=== PATIENT | male | born 1975 | race American Indian/Alaskan Native ===

== ENCOUNTER 2021-05-23 09:55 | Emergency (ER) | payer SELFPAY ==
--- NOTE | 2021-05-23 11:42 | Emergency Department Report ---
ED General Adult HPI - General Chief complaint: Arrhythmia/Palpitations Stated complaint: ABNORMAL HEART RATE Time Seen by Provider: 05/23/21 11:28 Source: patient Mode of arrival: Ambulatory Limitations: No Limitations - History of Present Illness Initial comments: Patient is a 46-year-old male presents emergency room with complaints of needing clearance. 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 He states that they just listened with a stethoscope, but he did not have an EKG performed. He reports he was advised to be evaluated. He denies any symptoms at all and states that he "feels just fine." He denies any chest pain, shortness of breath, pleuritic pain, hemoptysis, leg swelling, calf pain, palpitations. Patient denies any past medical history. He denies any medications. He states that he does drink a lot of caffeine and energy drinks. No allergies to medications. - Related Data Previous Rx's Medication Instructions Recorded Last Taken Type amLODIPine 5 mg PO DAILY #30 tab 05/23/21 Unknown Rx Allergies Allergy/AdvReac Type Severity Reaction Status Date / Time No Known Allergies Allergy Unverified 05/23/21 10:12 ED Review of Systems ROS: Stated complaint: ABNORMAL HEART RATE Other details as noted in HPI Comment: All other systems reviewed and negative ED Past Medical Hx - Medications Home Medications: Home Medications Medication Instructions Recorded Confirmed Last Taken Type amLODIPine 5 mg PO DAILY #30 tab 05/23/21 Unknown Rx ED Physical Exam - General Limitations: No Limitations General appearance: alert, in no apparent distress - Head Head exam: Present: atraumatic, normocephalic - Eye Eye exam: Present: normal appearance - ENT ENT exam: Present: mucous membranes moist - Respiratory Respiratory exam: Present: normal lung sounds bilaterally. Absent: respiratory distress, wheezes, rales, rhonchi, stridor, chest wall tenderness, accessory muscle use, decreased breath sounds, prolonged expiratory - Cardiovascular Cardiovascular Exam: Present: normal rhythm, tachycardia (mild), normal heart sounds. Absent: systolic murmur, diastolic murmur, rubs, gallop - Neurological Exam Neurological exam: Present: alert, oriented X3 - Psychiatric Psychiatric exam: Present: normal affect, normal mood - Skin Skin exam: Present: warm, dry, intact ED Course Vital Signs 05/23/21 05/23/21 10:10 13:41 Temperature 98.5 F 99.0 F Pulse Rate 109 H 105 H Respiratory 17 18 Rate Blood Pressure 187/113 Blood Pressure 172/104 [Left] O2 Sat by Pulse 99 99 Oximetry ED Medical Decision Making - Lab Data Vital Signs 05/23/21 05/23/21 10:10 13:41 Temperature 98.5 F 99.0 F Pulse Rate 109 H 105 H Respiratory 17 18 Rate Blood Pressure 187/113 Blood Pressure 172/104 [Left] O2 Sat by Pulse 99 99 Oximetry - EKG Data EKG shows normal: sinus rhythm, axis, intervals, QRS complexes Rate: normal - EKG Data 05/23/21 12:49 non specific T wave inversion no STEMI - Medical Decision Making Patient is a 46-year-old male presents emergency room with complaints of needing clearance. 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 He states that they just listened with a stethoscope, but he did not have an EKG performed. He reports he was advised to be evaluated. He denies any symptoms at all and states that he "feels just fine." He denies any chest pain, shortness of breath, pleuritic pain, hemoptysis, leg swelling, calf pain, palpitations. Patient denies any past medical history. He denies any medications. He states that he does drink a lot of caffeine and energy drinks. No allergies to medications. vitals with mild tachycardia and elevated BP. EKG shows normal sinus rhythm and non specific T wave inversion, no arrhythmia. Patient is asymptomatic. Discussed case with Dr. Medina, ER attending who advised that patient can be discharged home and follow-up with primary care provider for DOT physical clearance and advised to start patient on blood pressure medication. Patient will be started on amlodipine 5 mg daily. Discussed lifestyle modifications with patient and advised low-sodium diet and to stop caffeine use. Advised patient Please take medication as prescribed. Increase your water intake. Eat a low-sodium diet. Incorporate 30 to 60 minutes of aerobic exercise daily. Please keep a blood pressure log and take this to the primary care doctor. You will need to follow- up with a primary care doctor regarding clearance for your DOT physical. We do not perform or clear people for DOT in the emergency room. Return to emergency room for any new or worsening symptoms. Critical care attestation.: If time is entered above; I have spent that time in minutes in the direct care of this critically ill patient, excluding procedure time. ED Disposition Clinical Impression: Elevated blood pressure reading HTN (hypertension) Qualifiers: Hypertension type: unspecified Qualified Code(s): I10 - Essential (primary) hypertension Disposition: 01 HOME / SELF CARE / HOMELESS Is pt being admited?: No Does the pt Need Aspirin: No Condition: Stable Instructions: Managing Your Hypertension, Hypertension (ED) Additional Instructions: Please take medication as prescribed. Increase your water intake. Eat a low- sodium diet. Incorporate 30 to 60 minutes of aerobic exercise daily. Please keep a blood pressure log and take this to the primary care doctor. You will need to follow-up with a primary care doctor regarding clearance for your DOT physical. We do not perform or clear people for DOT in the emergency room. Return to emergency room for any new or worsening symptoms. walk in clinic: [facility] in [place], [place] Address: [address] [place] [id number] Prescriptions: amLODIPine 5 mg PO DAILY #30 tab Referrals: MEGAN CARDONA MD [Primary Care Provider] - 3-5 Days SHAQ GRANDA MD [Staff Physician] - 3-5 Days [facility] [Provider Group] - 3-5 Days Time of Disposition: 12:50 Print Language: FRENCH
[2021-05-23 13:42] VITALS: BP 172/104
--- NOTE | 2021-05-24 12:07 | Electrocardiograph Report ---
[facility] Test Date: 2021-05-23 Test Time: 11:58:28 Pat Name: SHAISTA CAGE Department: Room: Gender: M Air [employer] Coordinator: GALLO : 1975 Requested By: SHAHBAZ QUEZADA Order Number: [id number] Reading MD: Mac Luna Measurements Intervals [place] Rate: 96 P: 66 IN: 132 QRS: 30 QRSD: 70 T: 178 QT: 315 QTc: 399 Interpretive Statements Sinus rhythm Probable left atrial enlargement Nonspecific T abnormalities, lateral leads No previous ECG available for comparison Electronically Signed On 05-24-2021 12:07:20 EST by Mac Luna
== END 2021-05-23 13:43 | disposition home or self-care (01) ==
LOC: ED 09:55
DX: R03.0 Elevated blood-pressure reading, without diagnosis of hypertension (principal); I10 Essential (primary) hypertension
CPT/HCPCS: 93005; 99282